=== PATIENT | female | born 1985 | race Caucasian/White ===

== ENCOUNTER 2016-06-13 09:48 | Emergency (ER) | payer BC ==
[2016-06-13 11:28] LABS: ABSOLUTE EOSINOPHILS # (AUTO) 0.1 10^3/uL (0.0-0.6); ABSOLUTE LYMPHOCYTES (AUTO) 2.9 10^3/uL (0.5-4.7); ABSOLUTE MONOCYTES (AUTO) 0.3 10^3/uL (0.1-1.4); ABSOLUTE NEUT (AUTO) 2.8 10^3/uL (1.7-8.2); BASOPHILS % (AUTO) 0.7 % (0-2); EOSINOPHILS % (AUTO) 2.2 % (0-6); HEMATOCRIT 43.8 % (36.0-47.0); HEMOGLOBIN 15.1 g/dL (12.0-15.5); HGB HCT DIFFERENCE 1.5; LYMPHOCYTES % (AUTO) 47.1 % (13-45); MEAN CORPUSCULAR HEMOGLOBIN 30.6 pg (27.0-33.4); MEAN CORPUSCULAR HGB CONC 34.5 g/dL (32.0-36.0); MEAN CORPUSCULAR VOLUME 89 fl (80-97); MONOCYTES % (AUTO) 4.4 % (3-13); RED BLOOD COUNT 4.94 10^6/uL (3.72-5.28); SEGMENTED NEUTROPHILS % (AUTO) 45.6 % (42-78); WHITE BLOOD COUNT 6.2 10^3/uL (4.0-10.5)
[2016-06-13 11:38] LABS: APPEARANCE,URINE CLEAR; BILIRUBIN,URINE NEGATIVE (NEGATIVE); GLUCOSE, URINE NEGATIVE (NEGATIVE); KETONES,URINE NEGATIVE (NEGATIVE); LEUKOCYTE ESTERASE,URINE NEGATIVE (NEGATIVE); NITRITE,URINE NEGATIVE (NEGATIVE); PROTEIN,URINE NEGATIVE (NEGATIVE); URINE SPECIFIC GRAVITY 1.006; UROBILINOGEN,URINE NEGATIVE mg/dL (<2.0)
[2016-06-13 11:43] LABS: ALANINE AMINOTRANSFERASE 107 U/L (9-52); ALBUMIN 3.9 g/dL (3.5-5.0); ALKALINE PHOSPHATASE 53 U/L (38-126); ANION GAP 11 (5-19); ASPARTATE AMINO TRANSFERASE 56 U/L (14-36); BILIRUBIN,TOTAL 0.5 mg/dL (0.2-1.3); BLOOD UREA NITROGEN 9 mg/dL (7-20); CALCIUM 9.5 mg/dL (8.4-10.2); CARBON DIOXIDE 26 mmol/L (22-30); CHLORIDE 103 mmol/L (98-107); CREATININE RESULT 0.86 mg/dL (0.52-1.25); GLUCOSE 139 mg/dL (75-110); LIPASE 86.9 U/L (23-300); POTASSIUM 4.2 mmol/L (3.6-5.0); SODIUM 140.3 mmol/L (137-145); TOTAL PROTEIN 7.4 g/dL (6.3-8.2)
[2016-06-13] MEDS ORDERED: ONDANSETRON 4 MG TAB.RAPDIS PO ONE (13:42)
[2016-06-13] MEDS ORDERED: TRAMADOL HCL 50 MG TABLET PO ONE (13:43)
--- NOTE | 2016-06-13 14:41 | ER Document Report ---
ED GI/ - General Chief Complaint: Abdominal Pain Stated Complaint: ABDOMINAL PAIN Notes: Patient says that she's been experiencing severe left abdominal pains since . And, she is been experiencing rectal bleeding, 7-10 times a day, which is loose, liquid, bloody stools. She describes them as being "nonstop", and "bleeding constantly". She has had this happen a couple of times in the past year and has been seen here and told she had an internal hemorrhoid and was referred to the local surgeons. She says she has appointment to see them on June 29, but called them this morning because of these symptoms and she was advised to come to the emergency room right away. Patient says that she's having nausea and some gagging but not actually vomiting. Her abdominal pain is in the left abdomen more to the left lower quadrant. TRAVEL OUTSIDE OF THE [place] IN LAST 30 DAYS: No - Related Data Allergies/Adverse Reactions: Penicillins Allergy (Intermediate, Verified 06/13/16 10:38) Hives amoxicillin Allergy (Verified 06/13/16 10:38) iodine Allergy (Verified 06/13/16 10:38) latex [Latex] Allergy (Verified 06/13/16 10:38) IVP Dye Allergy (Uncoded 06/13/16 10:38) Past Medical History - Social History Smoking Status: Current Every Day Smoker Chew tobacco use (# tins/day): No Frequency of alcohol use: Social Drug Abuse: None Family History: Arthritis, CAD, CVA, Hyperlipidemia, Hypertension, Malignancy Patient has suicidal ideation: No Patient has homicidal ideation: No Pulmonary Medical History: Reports: Hx Pneumonia Renal/ Medical History: Reports: Hx Ovarian Cysts, Other - LMP second week of April. GI Medical History: Reports: Hx Gastroesophageal Reflux Disease Skin Medical History: Reports Hx Eczema, Reports Hx Psoriasis Psychiatric Medical History: Reports: Hx Depression Past Surgical History: Reports: Hx Section - x2, Hx Tubal Ligation - Immunizations Immunizations up to date: Yes Hx Diphtheria, Pertussis, Tetanus Vaccination: - 2009 Hx Pneumococcal Vaccination: 04/24/09 Review of Systems - Review of Systems Notes: REVIEW OF SYSTEMS: CONSTITUTIONAL : Denies fever. EENT: Denies eye, ear, nose or mouth or throat pain or other symptoms. CARDIOVASCULAR: Denies chest pain. RESPIRATORY: Denies cough, chest congestion, or shortness of breath. GASTROINTESTINAL: See history of present illness. GENITOURINARY: Denies difficulty or painful urinating, urinary frequency, blood in urine. MUSCULOSKELETAL: Denies back or neck pain. Denies joint pain or swelling. SKIN: Denies rash or skin lesions. NEUROLOGICAL: Denies LOC or altered mental status. Denies headache. Denies sensory loss or motor deficits. ALL OTHER SYSTEMS REVIEWED AND NEGATIVE. Physical Exam - Vital signs Vitals: Temp Pulse Resp BP Pulse Ox 98.2 F 78 20 138/91 H 97 06/13/16 10:34 06/13/16 10:34 06/13/16 10:34 06/13/16 10:34 06/13/16 10:34 Interpretation: Normal - Notes Notes: PHYSICAL EXAMINATION: GENERAL: Well-appearing, in no acute distress. Vital signs are all normal. No hypotension and no tachycardia. Weighs 116 kg. HEAD: Atraumatic, normocephalic. NECK: Normal range of motion, supple. LUNGS: Breath sounds clear and equal bilaterally. HEART: Regular rate and rhythm without murmurs. ABDOMEN: Soft, nontender. No guarding or rebound. No tenderness of the left abdomen to my examination, but exam is difficult because of the patient's size. Rectal exam reveals several warts perianally, one fairly large one. I don't see any blood of the anal area or the skin around the anus. Digital exam performed and no abnormalities palpated. The glove returned with no blood visible on it. There was one brown speck of apparent stool present. I obtain a specimen for stool guaiac and it was sent to the lab and came back negative for blood. BACK: No tenderness throughout entire back. EXTREMITIES: Normal range of motion without pain. NEUROLOGICAL: Normal speech, normal gait. Normal sensory, motor, and reflex exams. Awake, alert, and oriented x3. Cranial nerves normal. PSYCH: Normal mood, normal affect. SKIN: Warm, dry, no rashes. Course - Re-evaluation Re-evalutation: 06/13/16 14:36 Patient's entire workup is negative, including negative stool guaiac for blood, negative CT scan of the abdomen and pelvis, and all other lab work. Hemoglobin is 15.1 and white cell count is only in the 6000. Discussed the lab and CT scan with the patient. Advised her that I would provide her with a prescription for nausea vomiting and a prescription for Ultram for pain and she declined both. Patient says she has appointment to see the surgeons regarding this condition on June 29. I encouraged her to keep that appointment. - Vital Signs Vital signs: Temp Pulse Resp BP Pulse Ox 97.8 F 84 16 126/85 H 96 06/13/16 14:47 06/13/16 14:47 06/13/16 14:47 06/13/16 14:47 06/13/16 14:47 - Laboratory Result Diagrams: 06/13/16 11:15 06/13/16 11:15 Laboratory results interpreted by me: 06/13/16 06/13/16 06/13/16 11:15 11:15 11:15 Lymphocytes % 47.1 H Glucose 139 H AST 56 H ALT 107 H Urine Blood SMALL H - Diagnostic Test Radiology reviewed: Image reviewed, Reports reviewed - Uncontrasted CT scan of the patient's abdomen and pelvis shows no abnormalities. Discharge - Discharge Clinical Impression: Rectal bleeding Abdominal pain Qualifiers: Abdominal location: left lower quadrant Qualified Code(s): R10.32 - Left lower quadrant pain Condition: Stable Disposition: HOME, SELF-CARE Additional Instructions: ABDOMINAL PAIN: There are many causes of abdominal pain. Pain can mean a serious problem requiring surgery (such as appendicitis). It can also be an innocent problem that goes away on its own (such as a viral infection). Often, time must pass to determine the cause of pain. The physician does not feel that hospitalization is necessary, at present. Things may change within the next 24 hours. Call the doctor or come back for re- examination if any problems occur, such as: (1) Pain that becomes more severe, steady, or becomes concentrated in one specific area. Also, pain that is more severe with movement or coughing. (2) Vomiting that persists or becomes more frequent. (3) Blood in the vomitus, urine, or bowel movements. Blood in the stool may have a tarry or black appearance. (4) Shaking chills or fever greater than 100 degrees F. (5) The abdomen becomes more distended or swollen. (6) Bowel movements cease. (7) Failure to improve as expected. Rectal Bleeding, Unclear Cause No definite cause has been found for the rectal bleeding you have experienced. Among the possible causes are internal or external hemorrhoids ( internal hemorrhoids can't be felt on the outside), an anal fissure (a crack at the anal ring), infections or inflammatory diseases of the colon, tumors or polyps, or diverticula (diverticula are outpouchings from the colon wall). To establish a cause for your bleeding (or at least make certain there is no serious problem such as a tumor), further evaluation will be necessary. This may include special X-rays, or passage of a scope up into the colon. Be sure to keep your follow-up appointment. Should you develop brisk bleeding, abdominal pain, fever, lightheadedness, or fever, call the doctor or return at once. NORMAL EXAM AND WORKUP: At this time, your examination and workup show no significant abnormality. No significant abnormal physical findings are noted. All laboratory, EKG, and imaging (x-ray, CT scans, ultrasound) studies that were ordered show no significant abnormality. Although your examination and all studies that were ordered showed no significant abnormal finding, there are no examinations and no studies that are 100% accurate. There is always the possibility that some abnormality could exist and not be detected with physical examination or within the limits and capabilities of laboratory and other studies. You should return or follow up as you were instructed on your visit today for further evaluation if your symptoms do not resolve. ANTINAUSEA MEDICATION: You have been given a medication to suppress nausea and vomiting. This type of medication can be given as a shot, pill, or suppository. It will usually last for many hours. Pills and shots usually last six to eight hours, suppositories last about 12 hours. For the typical illness, only one or two doses of the medication may be necessary. Mild lightheadedness may occur. This type of medicine can cause drowsiness. Do not drive or operate dangerous machinery while under its influence. Do not mix with alcohol. See your doctor at once if you have muscle spasms or tightness, or uncontrollable motions (particularly of the neck, mouth, or jaw). Persistent vomiting or severe lightheadedness should also be evaluated by the physician. FOLLOW-UP CARE: If you have been referred to a physician for follow-up care, call the physician s office for an appointment as you were instructed or within the next two days. If you experience worsening or a significant change in your symptoms, notify the physician immediately or return to the Emergency Department at any time for re-evaluation. Keep your appointment to be seen at the surgeon's office on June 29, as scheduled. At any time, if your symptoms worsen, you begin to have heavy hemorrhaging rectally, you have a high fever, or you are vomiting and can't keep down fluids and food, return for us to reevaluate your condition. Forms: Return to Work
[2016-06-13 14:48] VITALS: BP 126/85
== END 2016-06-13 14:48 | disposition home or self-care (01) ==
LOC: ER 09:48
DX: K62.5 Hemorrhage of anus and rectum (principal); R10.32 Left lower quadrant pain; R10.9 Unspecified abdominal pain; F17.210 Nicotine dependence, cigarettes, uncomplicated
CPT/HCPCS: 99284; 36415; 83690; 85025; 82272; 81025; 80053; 81001; 74176; S0119

== ENCOUNTER 2016-09-26 07:55 | Emergency (ER) | payer BC ==
--- NOTE | 2016-09-26 09:19 | ER Document Report ---
ED Medical Screen (RME) - General Chief Complaint: Abdominal Pain Stated Complaint: ADOMINAL PAIN Time Seen by Provider: 09/26/16 09:14 Notes: Patient has had a stabbing left lower quadrant pain since yesterday afternoon. Nausea but no vomiting or diarrhea. No UTI symptoms. No fevers. Patient has had her tubes tied. LMP July. Recent surgery for internal and external hemorrhoids. History of a ruptured ovarian cyst. Additionally, patient says that she is having pain and swelling of her left foot for the last 2 weeks. No history of any injury. No history of gout. TRAVEL OUTSIDE OF THE [place] IN LAST 30 DAYS: No - Related Data Allergies/Adverse Reactions: Penicillins Allergy (Intermediate, Verified 09/26/16 08:08) Hives amoxicillin Allergy (Verified 09/26/16 08:08) iodine Allergy (Verified 09/26/16 08:08) latex [Latex] Allergy (Verified 09/26/16 08:08) IVP Dye Allergy (Uncoded 09/26/16 08:08) Past Medical History - Social History Family history: Reviewed & Not Pertinent Pulmonary Medical History: Reports: Hx Pneumonia Renal/ Medical History: Reports: Hx Ovarian Cysts. Denies: Hx Peritoneal Dialysis GI Medical History: Reports: Hx Gastroesophageal Reflux Disease Skin Medical History: Reports Hx Eczema, Reports Hx Psoriasis Psychiatric Medical History: Reports: Hx Depression Past Surgical History: Reports: Hx Section - x2, Hx Tubal Ligation - Immunizations Immunizations up to date: Yes Hx Diphtheria, Pertussis, Tetanus Vaccination: - 2009 Physical Exam - Vital signs Vitals: Temp Pulse Resp BP Pulse Ox 98.2 F 80 18 138/82 H 99 09/26/16 08:08 09/26/16 08:08 09/26/16 08:08 09/26/16 08:08 09/26/16 08:08 Course - Vital Signs Vital signs: Temp Pulse Resp BP Pulse Ox 98.2 F 80 18 138/82 H 99 09/26/16 08:08 09/26/16 08:08 09/26/16 08:08 09/26/16 08:08 09/26/16 08:08
[2016-09-26 09:49] LABS: ABSOLUTE BASOPHILS # (AUTO) 0.1 10^3/uL (0.0-0.2); ABSOLUTE EOSINOPHILS # (AUTO) 0.2 10^3/uL (0.0-0.6); ABSOLUTE MONOCYTES (AUTO) 0.3 10^3/uL (0.1-1.4); ABSOLUTE NEUT (AUTO) 3.2 10^3/uL (1.7-8.2); BASOPHILS % (AUTO) 0.7 % (0-2); EOSINOPHILS % (AUTO) 2.9 % (0-6); HEMATOCRIT 45.6 % (36.0-47.0); HEMOGLOBIN 15.6 g/dL (12.0-15.5); HGB HCT DIFFERENCE 1.2; LYMPHOCYTES % (AUTO) 44.3 % (13-45); MEAN CORPUSCULAR HEMOGLOBIN 30.5 pg (27.0-33.4); MEAN CORPUSCULAR HGB CONC 34.2 g/dL (32.0-36.0); MEAN CORPUSCULAR VOLUME 89 fl (80-97); MONOCYTES % (AUTO) 5.1 % (3-13); RED BLOOD COUNT 5.11 10^6/uL (3.72-5.28); RED CELL DISTRIBUTION WIDTH 13.2 % (11.5-14.0); WHITE BLOOD COUNT 6.7 10^3/uL (4.0-10.5)
[2016-09-26 09:56] LABS: APPEARANCE,URINE CLEAR; BILIRUBIN,URINE NEGATIVE (NEGATIVE); GLUCOSE, URINE NEGATIVE (NEGATIVE); KETONES,URINE NEGATIVE (NEGATIVE); LEUKOCYTE ESTERASE,URINE NEGATIVE (NEGATIVE); NITRITE,URINE NEGATIVE (NEGATIVE); PROTEIN,URINE NEGATIVE (NEGATIVE); URINE SPECIFIC GRAVITY 1.012; UROBILINOGEN,URINE NEGATIVE mg/dL (<2.0)
[2016-09-26 10:08] LABS: ALANINE AMINOTRANSFERASE 74 U/L (9-52); ALBUMIN 4.1 g/dL (3.5-5.0); ALKALINE PHOSPHATASE 59 U/L (38-126); ANION GAP 11 (5-19); ASPARTATE AMINO TRANSFERASE 37 U/L (14-36); BILIRUBIN,DIRECT 0.3 mg/dL (0.0-0.4); BILIRUBIN,TOTAL 0.5 mg/dL (0.2-1.3); BLOOD UREA NITROGEN 12 mg/dL (7-20); CALCIUM 9.6 mg/dL (8.4-10.2); CARBON DIOXIDE 25 mmol/L (22-30); CHLORIDE 105 mmol/L (98-107); CREATININE RESULT 0.91 mg/dL (0.52-1.25); GLUCOSE 112 mg/dL (75-110); LIPASE 104.9 U/L (23-300); POTASSIUM 4.5 mmol/L (3.6-5.0); SODIUM 140.6 mmol/L (137-145); TOTAL PROTEIN 7.2 g/dL (6.3-8.2); URIC ACID 8.5 mg/dL (2.5-6.2)
--- NOTE | 2016-09-26 11:29 | ER Document Report ---
ED General - General Chief Complaint: Abdominal Pain Stated Complaint: ADOMINAL PAIN Time Seen by Provider: 09/26/16 09:14 TRAVEL OUTSIDE OF THE [place] IN LAST 30 DAYS: No - HPI Patient complains to provider of: Abdominal pain joint pain Notes: Patient coming in for evaluation of abdominal pain left lower quadrant and joint pain. Joint pain has been intermittent over the last few weeks. Patient states that her joints will swell and become red and painful. Patient denies any fevers chills nausea vomiting. Patient denies any trauma. Patient states left lower quadrant abdominal pain no nausea no vomiting no diarrhea. - Related Data Allergies/Adverse Reactions: Penicillins Allergy (Intermediate, Verified 09/26/16 08:08) Hives amoxicillin Allergy (Verified 09/26/16 08:08) iodine Allergy (Verified 09/26/16 08:08) latex [Latex] Allergy (Verified 09/26/16 08:08) IVP Dye Allergy (Uncoded 09/26/16 08:08) Past Medical History - Social History Smoking Status: Current Every Day Smoker Frequency of alcohol use: Rare Drug Abuse: None Family History: Arthritis, CAD, CVA, Hyperlipidemia, Hypertension, Malignancy Patient has suicidal ideation: No Patient has homicidal ideation: No Pulmonary Medical History: Reports: Hx Pneumonia Renal/ Medical History: Reports: Hx Ovarian Cysts. Denies: Hx Peritoneal Dialysis GI Medical History: Reports: Hx Gastroesophageal Reflux Disease Skin Medical History: Reports Hx Eczema, Reports Hx Psoriasis Psychiatric Medical History: Reports: Hx Depression Past Surgical History: Reports: Hx Section - x2, Hx Tubal Ligation - Immunizations Immunizations up to date: Yes Hx Diphtheria, Pertussis, Tetanus Vaccination: - 2009 Hx Pneumococcal Vaccination: 04/24/09 Review of Systems - Review of Systems Constitutional: No symptoms reported EENT: No symptoms reported Cardiovascular: No symptoms reported Respiratory: No symptoms reported Gastrointestinal: Abdominal pain Genitourinary: No symptoms reported Female Genitourinary: No symptoms reported Musculoskeletal: Other - Joint pain Skin: No symptoms reported Hematologic/Lymphatic: No symptoms reported Neurological/Psychological: No symptoms reported Physical Exam - Vital signs Vitals: Temp Pulse Resp BP Pulse Ox 98.2 F 80 18 138/82 H 99 09/26/16 08:08 09/26/16 08:08 09/26/16 08:08 09/26/16 08:08 09/26/16 08:08 Interpretation: Normal - General General appearance: Appears well, Alert - HEENT Head: Normocephalic, Atraumatic Eyes: Normal Pupils: PERRL - Respiratory Respiratory status: No respiratory distress Chest status: Nontender Breath sounds: Normal Chest palpation: Normal - Cardiovascular Rhythm: Regular Heart sounds: Normal auscultation Murmur: No - Abdominal Inspection: Normal Distension: No distension Bowel sounds: Normal Tenderness: Nontender. No: Tender, McBurney's point, Clayton's sign, Guarding, Rebound Organomegaly: No organomegaly - Back Back: Normal, Nontender - Extremities General upper extremity: Normal inspection, Nontender, Normal color, Normal ROM , Normal temperature General lower extremity: Normal inspection, Nontender, Normal color, Normal ROM , Normal temperature, Normal weight bearing. No: Marlen's sign - Neurological Neuro grossly intact: Yes Cognition: Normal Orientation: AAOx4 [place] Coma Scale Eye Opening: Spontaneous [place] Coma Scale Verbal: Oriented [place] Coma Scale Motor: Obeys Commands Car[place] Coma Scale Total: 15 Speech: Normal Motor strength normal: LUE, RUE, LLE, RLE Sensory: Normal - Psychological Associated symptoms: Normal affect, Normal mood - Skin Skin Temperature: Warm Skin Moisture: Dry Skin Color: Normal Course - Re-evaluation Re-evalutation: 09/26/16 15:11 Patient coming in for evaluation of lower quadrant abdominal pain and joint pain. Patient does have elevation or her uric acid possibly beginning of gout. Patient was educated about gout. At this time patient does not have any joints that look to be undergoing a gout flare. Patient does have left lower quadrant abdominal pain however abdomen is very benign upon evaluation patient is concerned about an ovarian cyst. Plan patient job very resistant mixes do not think this is emergent this time she does not need an ultrasound. Patient lab work shows no signs of acute pathology slight elevation in LFTs is chronic for the patient is on the . Patient will be discharged home. - Vital Signs Vital signs: Temp Pulse Resp BP Pulse Ox 98.7 F 96 20 144/95 H 96 09/26/16 11:30 09/26/16 11:30 09/26/16 11:30 09/26/16 11:30 09/26/16 11:30 - Laboratory Result Diagrams: 09/26/16 09:30 09/26/16 09:30 Laboratory results interpreted by me: 09/26/16 09/26/16 09:30 09:30 Hgb 15.6 H Glucose 112 H Uric Acid 8.5 H AST 37 H ALT 74 H Discharge - Discharge Clinical Impression: Left lower quadrant abdominal pain, Amenorrhea Extremity pain Qualifiers: Extremity pain location: unspecified extremity Qualified Code(s): M79.609 - Pain in unspecified limb Condition: Good Disposition: HOME, SELF-CARE Instructions: Abdominal Pain ([facility]), Gout Diet ([facility]), Gout ([facility]) Additional Instructions: Your laboratory studies today shows elevation in uric acid which could be concerning for gout. I would highly recommend she follow-up with your primary care physician or one of the physicians provided for further evaluation. We treat gout with diet control and anti-inflammatory medications. Please follow with primary care physician for further evaluation of abdominal pain. He may also follow-up with your [employer] for further evaluation of your amenorrhea Prescriptions: Ibuprofen [Motrin 600 Mg Tablet] 600 mg PO TID #60 tablet Forms: Return to Work
[2016-09-26 12:16] VITALS: BP 144/95
== END 2016-09-26 12:18 | disposition home or self-care (01) ==
LOC: ER 07:55
DX: R10.32 Left lower quadrant pain (principal); M25.50 Pain in unspecified joint; N91.2 Amenorrhea, unspecified; R79.89 Other specified abnormal findings of blood chemistry; F17.200 Nicotine dependence, unspecified, uncomplicated; Z87.42 Personal history of other diseases of the female genital tract; Z87.19 Personal history of other diseases of the digestive system; Z98.51 Tubal ligation status; Z88.0 Allergy status to penicillin; Z91.040 Latex allergy status; Z91.041 Radiographic dye allergy status
CPT/HCPCS: 36415; 80053; 81001; 83690; 84550; 84703; 85025; 86430; 99284

== ENCOUNTER 2017-02-03 11:18 | Emergency (ER) | payer BC ==
[2017-02-03 13:08] LABS: APPEARANCE,URINE CLEAR; BILIRUBIN,URINE NEGATIVE (NEGATIVE); GLUCOSE, URINE NEGATIVE (NEGATIVE); KETONES,URINE NEGATIVE (NEGATIVE); LEUKOCYTE ESTERASE,URINE NEGATIVE (NEGATIVE); NITRITE,URINE NEGATIVE (NEGATIVE); PROTEIN,URINE NEGATIVE (NEGATIVE); URINE SPECIFIC GRAVITY 1.004; UROBILINOGEN,URINE NEGATIVE mg/dL (<2.0)
--- NOTE | 2017-02-03 13:46 | ER Document Report ---
ED Medical Screen (RME) - General Chief Complaint: Swelling Stated Complaint: stomach pain, left-sided chest pain, edema. Time Seen by Provider: 02/03/17 13:27 Mode of Arrival: Ambulatory Information source: Patient Notes: 31-year-old female reports she made changes in her diet and activity level about 1-2 months ago. One month ago she began to have swelling, initially on the left side. She now has swelling in both legs and she feels like she has swelling in both hands. She also complains of swelling underneath her jaw, in her neck. This is more notable when she first wakes up in the morning and then resolves. She also complains of left-sided chest pain with radiation into her left arm. She is beginning to have some discomfort in her left upper abdomen. TRAVEL OUTSIDE OF THE [place] IN LAST 30 DAYS: No - HPI Onset: Other - 1 month Onset/Duration: Gradual - Related Data Allergies/Adverse Reactions: Penicillins Allergy (Intermediate, Verified 02/03/17 11:48) Hives amoxicillin Allergy (Verified 02/03/17 11:48) iodine Allergy (Verified 02/03/17 11:48) latex [Latex] Allergy (Verified 02/03/17 11:48) IVP Dye Allergy (Uncoded 02/03/17 11:48) Past Medical History - Social History Chew tobacco use (# tins/day): No Frequency of alcohol use: None Drug Abuse: None Family history: Reviewed & Not Pertinent Pulmonary Medical History: Reports: Hx Pneumonia Renal/ Medical History: Reports: Hx Ovarian Cysts. Denies: Hx Peritoneal Dialysis GI Medical History: Reports: Hx Gastroesophageal Reflux Disease Skin Medical History: Reports Hx Eczema, Reports Hx Psoriasis Psychiatric Medical History: Reports: Hx Depression Past Surgical History: Reports: Hx Section - x2, Hx Tubal Ligation - Immunizations Immunizations up to date: Yes Hx Diphtheria, Pertussis, Tetanus Vaccination: Yes - 2009 History of Influenza Vaccine for 01/2017 - 06/2017 Season: No Review of Systems - Review of Systems Constitutional: Weight gain - Weight gain despite increased activity and decreased intake. EENT: No symptoms reported Cardiovascular: Chest pain Respiratory: See HPI Gastrointestinal: Abdominal pain Genitourinary: No symptoms reported Female Genitourinary: No symptoms reported Musculoskeletal: Leg swelling, Ankle swelling Skin: No symptoms reported Hematologic/Lymphatic: No symptoms reported Neurological/Psychological: No symptoms reported Physical Exam - Vital signs Vitals: Temp Pulse Resp BP Pulse Ox 99.0 F 73 20 144/94 H 99 02/03/17 11:50 02/03/17 11:50 02/03/17 11:50 02/03/17 11:50 02/03/17 11:50 - Notes Notes: PHYSICAL EXAMINATION: GENERAL: Well-appearing, no acute distress. Moderate body habitus. Patient alert and communicative. HEAD: Atraumatic, normocephalic. ENT: Nares patent, oropharynx clear without exudates. Moist mucous membranes. NECK: Normal range of motion, supple without lymphadenopathy LUNGS: Breath sounds clear to auscultation bilaterally and equal. No wheezes rales or rhonchi. HEART: Regular rate and rhythm without murmurs ABDOMEN: Soft, mild tenderness in the left upper quadrant., nondistended abdomen. No guarding, no rebound. No masses appreciated. Musculoskeletal: Normal range of motion, mild 1-2+ pitting edema.. No cyanosis. NEUROLOGICAL: Cranial nerves grossly intact. Normal speech, normal gait. Normal sensory, motor exams PSYCH: Normal mood, normal affect. SKIN: Warm, Dry, no rashes or lesions noted. Course - Re-evaluation Re-evalutation: 02/03/17 13:42 Unclear cause of swelling, in both legs and in her neck. Question of venous return. The patient does not have any identifiable risk factors for blood clots , but we will check a d-dimer. We will check kidney function as well as electrolytes and protein level due to the edema she has been having. I have greeted this patient and performed a rapid initial assessment. A comprehensive evaluation will be performed by another physician within the emergency department, including review of any tests I may have ordered. 02/03/17 15:32 Patient's blood tests overall look good. Chest x-ray is unremarkable. Her cardiac silhouette appears to me to be generous, but radiology has interpreted this as normal with no sign of failure. At this time, the patient appears overall well. I have asked her to follow-up with her primary physician. No acute interventions at this time. - Vital Signs Vital signs: Temp Pulse Resp BP Pulse Ox 99.0 F 73 20 144/94 H 99 02/03/17 11:50 02/03/17 11:50 02/03/17 11:50 02/03/17 11:50 02/03/17 11:50 - Laboratory Result Diagrams: 02/03/17 13:40 02/03/17 13:40 Laboratory results interpreted by me: 02/03/17 02/03/17 13:40 13:40 Hgb 15.7 H Lymphocytes % 45.3 H AST 53 H ALT 91 H Doctor's Discharge - Discharge Condition: Good Disposition: HOME, SELF-CARE Instructions: Dependent Edema ([facility]) Additional Instructions: Your blood tests, including your blood count, electrolytes, kidney function, and a test checking for possible blood clots, all looked reasonable. Your chest x-ray looked reasonable with no sign of cardiac failure. Take hydrochlorothiazide to help with some mild diuresis. Follow-up with your primary physician. Return to the emergency department if you have trouble breathing, increased swelling, or other urgent concerns. Prescriptions: Hydrochlorothiazide 12.5 mg PO QAM #15 tablet
[2017-02-03 14:06] LABS: ABSOLUTE EOSINOPHILS # (AUTO) 0.2 10^3/uL (0.0-0.6); ABSOLUTE LYMPHOCYTES (AUTO) 3.4 10^3/uL (0.5-4.7); ABSOLUTE MONOCYTES (AUTO) 0.5 10^3/uL (0.1-1.4); ABSOLUTE NEUT (AUTO) 3.4 10^3/uL (1.7-8.2); BASOPHILS % (AUTO) 0.6 % (0-2); EOSINOPHILS % (AUTO) 2.3 % (0-6); HEMATOCRIT 44.8 % (36.0-47.0); HEMOGLOBIN 15.7 g/dL (12.0-15.5); HGB HCT DIFFERENCE 2.3; LYMPHOCYTES % (AUTO) 45.3 % (13-45); MEAN CORPUSCULAR HEMOGLOBIN 31.1 pg (27.0-33.4); MEAN CORPUSCULAR VOLUME 89 fl (80-97); RED BLOOD COUNT 5.05 10^6/uL (3.72-5.28); RED CELL DISTRIBUTION WIDTH 13.4 % (11.5-14.0); SEGMENTED NEUTROPHILS % (AUTO) 44.8 % (42-78); WHITE BLOOD COUNT 7.6 10^3/uL (4.0-10.5)
[2017-02-03 14:21] LABS: ALANINE AMINOTRANSFERASE 91 U/L (9-52); ALBUMIN 4.3 g/dL (3.5-5.0); ALKALINE PHOSPHATASE 54 U/L (38-126); ANION GAP 12 (5-19); ASPARTATE AMINO TRANSFERASE 53 U/L (14-36); BILIRUBIN,DIRECT 0.3 mg/dL (0.0-0.4); BILIRUBIN,TOTAL 0.3 mg/dL (0.2-1.3); BLOOD UREA NITROGEN 14 mg/dL (7-20); CALCIUM 9.9 mg/dL (8.4-10.2); CARBON DIOXIDE 26 mmol/L (22-30); CHLORIDE 103 mmol/L (98-107); CREATINE KINASE 97 U/L (30-135); CREATININE RESULT 0.95 mg/dL (0.52-1.25); GLUCOSE 81 mg/dL (75-110); LIPASE 106.9 U/L (23-300); POTASSIUM 4.8 mmol/L (3.6-5.0); SODIUM 140.6 mmol/L (137-145); TOTAL PROTEIN 7.3 g/dL (6.3-8.2)
--- NOTE | 2017-02-03 15:09 | RADIOLOGY REPORT (SQ) ---
EXAM DESCRIPTION: CHEST PA/LAT COMPLETED DATE/TIME: 02/03/2017 2:30 pm REASON FOR STUDY: left sided chest pain COMPARISON: Chest films 10/11/2012, 07/28/2015 EXAM PARAMETERS: NUMBER OF VIEWS: two views TECHNIQUE: Digital Frontal and Lateral radiographic views of the chest acquired. RADIATION DOSE: NA LIMITATIONS: none FINDINGS: LUNGS AND PLEURA: No opacities, masses or pneumothorax. No pleural effusion. MEDIASTINUM AND HILAR STRUCTURES: No masses or contour abnormalities. HEART AND VASCULAR STRUCTURES: Heart normal size. No evidence for failure. BONES: No acute findings. HARDWARE: None in the chest. OTHER: No other significant finding. IMPRESSION: NO SIGNIFICANT RADIOGRAPHIC FINDING IN THE CHEST. TECHNICAL DOCUMENTATION: JOB ID: [id number] [employer]- All Rights Reserved
[2017-02-03 16:27] LABS: THYROID STIMULATING HORMONE 6.83 uIU/mL (0.47-4.68)
--- NOTE | 2017-02-03 16:33 | ER Document Report ---
ED General - General Chief Complaint: Swelling Stated Complaint: stomach pain, left-sided chest pain, edema. Time Seen by Provider: 02/03/17 13:27 Mode of Arrival: Ambulatory Information source: Patient TRAVEL OUTSIDE OF THE [place] IN LAST 30 DAYS: No - HPI Patient complains to provider of: Abdominal distention, weight gain, leg swelling Onset: Other - 1 month Onset/Duration: Gradual, Persistent Quality of pain: Achy Associated symptoms: Body/muscle aches, Shortness of breath Notes: Patient is a 31-year-old female presenting to the emergency room today complaining of one-month history of abdominal bloating with weight gain, swelling in her neck area and on her left arm in her left leg, she also has some pain in the left upper abdomen, she reports shortness of breath at times with the sensation that she is gasping for air, she states that over the past few months she started working out, cut soda out of her diet, has been maintaining portion control and taking vitamins but continues to gain weight instead of losing - Related Data Allergies/Adverse Reactions: Penicillins Allergy (Intermediate, Verified 02/03/17 11:48) Hives amoxicillin Allergy (Verified 02/03/17 11:48) iodine Allergy (Verified 02/03/17 11:48) latex [Latex] Allergy (Verified 02/03/17 11:48) IVP Dye Allergy (Uncoded 02/03/17 11:48) Past Medical History - General Information source: Patient - Social History Smoking Status: Current Every Day Smoker Chew tobacco use (# tins/day): No Frequency of alcohol use: None Drug Abuse: None Family History: Arthritis, CAD, CVA, Hyperlipidemia, Hypertension, Malignancy Pulmonary Medical History: Reports: Hx Pneumonia Renal/ Medical History: Reports: Hx Ovarian Cysts. Denies: Hx Peritoneal Dialysis GI Medical History: Reports: Hx Gastroesophageal Reflux Disease Skin Medical History: Reports Hx Eczema, Reports Hx Psoriasis Psychiatric Medical History: Reports: Hx Depression Past Surgical History: Reports: Hx Section - x2, Hx Tubal Ligation - Immunizations Immunizations up to date: Yes Hx Diphtheria, Pertussis, Tetanus Vaccination: Yes - 2009 Hx Pneumococcal Vaccination: 04/24/09 Review of Systems - Review of Systems Constitutional: Weight gain EENT: No symptoms reported Cardiovascular: No symptoms reported Respiratory: See HPI Gastrointestinal: See HPI Genitourinary: No symptoms reported Female Genitourinary: No symptoms reported Musculoskeletal: No symptoms reported Skin: No symptoms reported Hematologic/Lymphatic: No symptoms reported Neurological/Psychological: No symptoms reported -: Yes All other systems reviewed and negative Physical Exam - Vital signs Vitals: Temp Pulse Resp BP Pulse Ox 99.0 F 73 20 144/94 H 99 02/03/17 11:50 02/03/17 11:50 02/03/17 11:50 02/03/17 11:50 02/03/17 11:50 Interpretation: Normal - General General appearance: Appears well, Alert - HEENT Head: Normocephalic, Atraumatic Eyes: Normal Pupils: PERRL - Respiratory Respiratory status: No respiratory distress Chest status: Nontender Breath sounds: Normal Chest palpation: Normal - Cardiovascular Rhythm: Regular Heart sounds: Normal auscultation Murmur: No - Abdominal Inspection: Obese Distension: Distended - Distended but soft Bowel sounds: Normal Tenderness: Tender - Left upper quadrant Organomegaly: No organomegaly - Back Back: Normal, Nontender - Extremities General upper extremity: Normal inspection, Nontender, Normal color, Normal ROM , Normal temperature General lower extremity: Normal inspection, Nontender, Normal color, Normal ROM , Normal temperature, Normal weight bearing. No: Marlen's sign - Neurological Neuro grossly intact: Yes Cognition: Normal Orientation: AAOx4 [place] Coma Scale Eye Opening: Spontaneous [place] Coma Scale Verbal: Oriented [place] Coma Scale Motor: Obeys Commands [place] Coma Scale Total: 15 Speech: Normal Motor strength normal: LUE, RUE, LLE, RLE Sensory: Normal - Psychological Associated symptoms: Normal affect, Normal mood - Skin Skin Temperature: Warm Skin Moisture: Dry Skin Color: Normal Course - Re-evaluation Re-evalutation: 02/03/17 16:37 Lab and imaging findings were discussed with patient at bedside which are relatively unremarkable, she is noted to have a slightly elevated TSH with no changes to T3 or T4, and mild elevation of liver enzymes which she is aware of due to fatty liver in the past, patient will be discharged with a prescription for hydrochlorothiazide 12.5 mg for assistance with peripheral edema, advised to follow-up with a primary care provider and a custom shoe designer and maker in 2-3 days or return if symptoms worsen, patient acknowledges understanding and agreement with this plan - Vital Signs Vital signs: Temp Pulse Resp BP Pulse Ox 98.6 F 71 15 174/65 H 97 10/13/17 16:00 02/03/17 16:00 02/03/17 16:00 02/03/17 16:00 02/03/17 16:00 - Laboratory Result Diagrams: 02/03/17 13:40 02/03/17 13:40 Laboratory results interpreted by me: 02/03/17 02/03/17 02/03/17 13:40 13:40 13:40 Hgb 15.7 H Lymphocytes % 45.3 H AST 53 H ALT 91 H TSH 6.83 H - Diagnostic Test Radiology reviewed: Image reviewed, Reports reviewed - EKG Interpretation by Me EKG shows normal: Sinus rhythm Rate: Normal Rhythm: NSR Discharge - Discharge Clinical Impression: Peripheral edema, Abdominal distention Condition: Good Disposition: HOME, SELF-CARE Instructions: Abdominal Pain ([facility]), Dependent Edema ([facility]), Family Physicians / Practices Additional Instructions: Your blood tests, including your blood count, electrolytes, kidney function, and a test checking for possible blood clots, all looked reasonable. Your chest x-ray looked reasonable with no sign of cardiac failure. Take hydrochlorothiazide to help with some mild diuresis. Follow-up with your primary physician. Return to the emergency department if you have trouble breathing, increased swelling, or other urgent concerns. Prescriptions: Hydrochlorothiazide 12.5 mg PO QAM #15 tablet Forms: Return to Work Referrals: TRACY LAURA MD [ACTIVE STAFF] - Follow up as needed
[2017-02-03 17:15] VITALS: BP 174/65
--- NOTE | 2017-02-03 18:26 | EKG REPORT ---
SEVERITY:- BORDERLINE ECG - SINUS RHYTHM BORDERLINE T ABNORMALITIES, ANTERIOR LEADS : Confirmed by: Nathanael Hook MD 03-Feb-2017 18:26:21
== END 2017-02-03 17:15 | disposition home or self-care (01) ==
LOC: ER 11:18
DX: R60.9 Edema, unspecified (principal); R14.0 Abdominal distension (gaseous); E66.9 Obesity, unspecified; F17.200 Nicotine dependence, unspecified, uncomplicated; Z98.51 Tubal ligation status; Z88.0 Allergy status to penicillin; Z91.040 Latex allergy status; Z91.041 Radiographic dye allergy status
CPT/HCPCS: 36415; 71020; 80053; 81001; 81025; 82550; 83690; 84439; 84443; 84481; 84484; 85025; 85379; 93005; 93010; 99284

== ENCOUNTER 2017-09-20 11:29 | Emergency (ER) | payer BC ==
[2017-09-20 11:43] VITALS: BP 129/84
[2017-09-20] MEDS ORDERED: ASPIRIN 81 MG TABLET, CHEWABLE PO ONE (11:57)
[2017-09-20] MEDS ORDERED: ALPRAZOLAM 0.5 MG TABLET PO ONE (11:58)
--- NOTE | 2017-09-20 11:59 | ER Document Report ---
ED Medical Screen (RME) - General Chief Complaint: Dizziness Stated Complaint: DIZZINESS Time Seen by Provider: 09/20/17 11:57 Notes: 32 years old female presents today with on and off chest tightness and chest pain with the left arm pain and discomfort associated with the chest pain since this morning. Currently have no pain. Denies any nausea vomiting palpitation or diaphoresis. She has a history of depression possibly anxiety I have greeted and performed a rapid initial assessment of this patient. A comprehensive ED assessment and evaluation of the patient, analysis of test results and completion of the medical decision making process will be conducted by additional ED providers. PHYSICAL EXAMINATION: GENERAL: Well-appearing, well-nourished and in no acute distress. Morbid obesity HEAD: Atraumatic, normocephalic. EYES: Pupils equal round extraocular movements intact, conjunctiva are normal. ENT: Nares patent NECK: Normal range of motion LUNGS: No respiratory distress Musculoskeletal: Normal range of motion NEUROLOGICAL: Normal speech, normal gait. PSYCH: Normal mood, normal affect. SKIN: Warm, Dry, normal turgor, no rashes or lesions noted. TRAVEL OUTSIDE OF THE [place] IN LAST 30 DAYS: No - Related Data Allergies/Adverse Reactions: Penicillins Allergy (Intermediate, Verified 09/20/17 11:36) Hives amoxicillin Allergy (Verified 09/20/17 11:36) iodine Allergy (Verified 09/20/17 11:36) latex [Latex] Allergy (Verified 09/20/17 11:36) IVP Dye Allergy (Uncoded 09/20/17 11:36) Past Medical History - Social History Family history: Reviewed & Not Pertinent Pulmonary Medical History: Reports: Hx Pneumonia Renal/ Medical History: Reports: Hx Ovarian Cysts. Denies: Hx Peritoneal Dialysis GI Medical History: Reports: Hx Gastroesophageal Reflux Disease Skin Medical History: Reports Hx Eczema, Reports Hx Psoriasis Psychiatric Medical History: Reports: Hx Depression Past Surgical History: Reports: Hx Section - x2, Hx Tubal Ligation - Immunizations Immunizations up to date: Yes Hx Diphtheria, Pertussis, Tetanus Vaccination: Yes - 2009 History of Influenza Vaccine for 01/2017 - 06/2017 Season: No Physical Exam - Vital signs Vitals: Temp Pulse Resp BP Pulse Ox 98.7 F 84 16 129/84 H 99 09/20/17 11:42 09/20/17 11:42 09/20/17 11:42 09/20/17 11:42 09/20/17 11:42 Course - Vital Signs Vital signs: Temp Pulse Resp BP Pulse Ox 98.7 F 84 16 129/84 H 99 09/20/17 11:42 09/20/17 11:42 09/20/17 11:42 09/20/17 11:42 09/20/17 11:42
[2017-09-20 12:55] LABS: ABSOLUTE EOSINOPHILS # (AUTO) 0.2 10^3/uL (0.0-0.6); ABSOLUTE LYMPHOCYTES (AUTO) 2.6 10^3/uL (0.5-4.7); ABSOLUTE MONOCYTES (AUTO) 0.4 10^3/uL (0.1-1.4); ABSOLUTE NEUT (AUTO) 3.2 10^3/uL (1.7-8.2); BASOPHILS % (AUTO) 0.5 % (0-2); HEMATOCRIT 43.7 % (36.0-47.0); LYMPHOCYTES % (AUTO) 40.5 % (13-45); MEAN CORPUSCULAR HEMOGLOBIN 30.7 pg (27.0-33.4); MEAN CORPUSCULAR HGB CONC 34.2 g/dL (32.0-36.0); MEAN CORPUSCULAR VOLUME 90 fl (80-97); MONOCYTES % (AUTO) 6.6 % (3-13); PLATELET COUNT 242 10^3/uL (150-450); RED BLOOD COUNT 4.88 10^6/uL (3.72-5.28); RED CELL DISTRIBUTION WIDTH 13.2 % (11.5-14.0); SEGMENTED NEUTROPHILS % (AUTO) 49.4 % (42-78); TOTAL CELLS COUNTED % (AUTO) 100 %; WHITE BLOOD COUNT 6.4 10^3/uL (4.0-10.5)
[2017-09-20 13:16] LABS: ALANINE AMINOTRANSFERASE 111 U/L (9-52); ALBUMIN 4.1 g/dL (3.5-5.0); ALKALINE PHOSPHATASE 48 U/L (38-126); ANION GAP 10 (5-19); ASPARTATE AMINO TRANSFERASE 55 U/L (14-36); BILIRUBIN,DIRECT 0.3 mg/dL (0.0-0.4); BILIRUBIN,TOTAL 0.3 mg/dL (0.2-1.3); BLOOD UREA NITROGEN 10 mg/dL (7-20); CALCIUM 9.6 mg/dL (8.4-10.2); CARBON DIOXIDE 27 mmol/L (22-30); CHLORIDE 107 mmol/L (98-107); CREATINE KINASE 202 U/L (30-135); GLUCOSE 90 mg/dL (75-110); POTASSIUM 4.4 mmol/L (3.6-5.0); SODIUM 144.1 mmol/L (137-145)
--- NOTE | 2017-09-20 13:16 | RADIOLOGY REPORT (SQ) ---
EXAM DESCRIPTION: CHEST SINGLE VIEW COMPLETED DATE/TIME: 09/20/2017 1:04 pm REASON FOR STUDY: Chest pain COMPARISON: Chest films 02/03/2017, 07/28/2015 EXAM PARAMETERS: NUMBER OF VIEWS: One view. TECHNIQUE: Single frontal radiographic view of the chest acquired. RADIATION DOSE: NA LIMITATIONS: None. FINDINGS: LUNGS AND PLEURA: No opacities, masses or pneumothorax. No pleural effusion. MEDIASTINUM AND HILAR STRUCTURES: No masses. Contour normal. HEART AND VASCULAR STRUCTURES: Heart normal in size. Normal vasculature. BONES: No acute findings. HARDWARE: None in the chest. OTHER: No other significant finding. IMPRESSION: NO ACUTE RADIOGRAPHIC FINDING IN THE CHEST. TECHNICAL DOCUMENTATION: JOB ID: [id number] [employer]- All Rights Reserved Reading location - IP/workstation name: [email or web address]
[2017-09-20 13:26] LABS: CREATINE KINASE MB 0.81 ng/mL (<4.55); TROPONIN I < 0.012 ng/mL
--- NOTE | 2017-09-20 14:52 | ER Document Report ---
ED General - General Chief Complaint: Dizziness Stated Complaint: DIZZINESS Time Seen by Provider: 09/20/17 11:57 Mode of Arrival: Ambulatory Information source: Patient Notes: 32-year-old lady with past medical history of GERD, anxiety as well as depression who presented today for evaluation of chest pain. According to patient her symptoms started approximately around 930 or 10 AM. Patient had chest pressure localized to the middle the chest, no radiation, severity of symptoms 6 out of 10, associated with mild shortness of breath without any diaphoresis or vomiting. Symptoms were nonexertional. Patient denies any prior history of heart disease. No strong family history of heart disease as well. TRAVEL OUTSIDE OF THE [place] IN LAST 30 DAYS: No - Related Data Allergies/Adverse Reactions: Penicillins Allergy (Intermediate, Verified 09/20/17 11:36) Hives amoxicillin Allergy (Verified 09/20/17 11:36) iodine Allergy (Verified 09/20/17 11:36) latex [Latex] Allergy (Verified 09/20/17 11:36) IVP Dye Allergy (Uncoded 09/20/17 11:36) Past Medical History - General Information source: Patient - Social History Smoking Status: Current Every Day Smoker Chew tobacco use (# tins/day): No Frequency of alcohol use: None Drug Abuse: None Family History: Arthritis, CAD, CVA, Hyperlipidemia, Hypertension, Malignancy Patient has suicidal ideation: No Patient has homicidal ideation: No Pulmonary Medical History: Reports: Hx Pneumonia Renal/ Medical History: Reports: Hx Ovarian Cysts. Denies: Hx Peritoneal Dialysis GI Medical History: Reports: Hx Gastroesophageal Reflux Disease Skin Medical History: Reports Hx Eczema, Reports Hx Psoriasis Psychiatric Medical History: Reports: Hx Depression Past Surgical History: Reports: Hx Section - x2, Hx Tubal Ligation - Immunizations Immunizations up to date: Yes Hx Diphtheria, Pertussis, Tetanus Vaccination: Yes - 2009 Hx Pneumococcal Vaccination: 04/24/09 Review of Systems - Review of Systems Notes: REVIEW OF SYSTEMS: CONSTITUTIONAL: -fevers, -chills EENT: -eye pain, -difficulty swallowing, -nasal congestion CARDIOVASCULAR: + Chest pain, -syncope. RESPIRATORY: -cough, + SOB GASTROINTESTINAL: -abdominal pain, -nausea, -vomiting, -diarrhea GENITOURINARY: -dysuria, -hematuria MUSCULOSKELETAL: -back pain, -neck pain SKIN: -rash or skin lesions. HEMATOLOGIC: -easy bruising or bleeding. LYMPHATIC: -swollen, enlarged glands. NEUROLOGICAL: -altered mental status or loss of consciousness, -headache, - neurologic symptoms PSYCHIATRIC: -anxiety, -depression. ALL OTHER SYSTEMS REVIEWED AND NEGATIVE. Physical Exam - Vital signs Vitals: Temp Pulse Resp BP Pulse Ox 98.7 F 84 16 129/84 H 99 09/20/17 11:42 09/20/17 11:42 09/20/17 11:42 09/20/17 11:42 09/20/17 11:42 - Notes Notes: Reviewed vital signs and nursing note as charted by RN. CONSTITUTIONAL: Alert and oriented and responds appropriately to questions, overweight HEAD: Normocephalic; atraumatic EYES: PERRL; Conjunctivae clear, sclerae non-icteric ENT: normal nose; no rhinorrhea; moist mucous membranes; pharynx without lesions noted NECK: Supple without meningismus; non-tender; no cervical lymphadenopathy, no masses CARD: Regular rate and rhythm; no murmurs, no clicks, no rubs, no gallops; symmetric distal pulses RESP: Normal chest excursion without splinting or tachypnea; breath sounds clear and equal bilaterally ABD/GI: Normal bowel sounds; non-distended; soft, BACK: The back appears normal and is non-tender to palpation EXT: Normal ROM in all joints; non-tender to palpation; no cyanosis, no effusions, no edema SKIN: Normal color for age and race; warm; dry; good turgor; capillary refill < 2 seconds; no acute lesions noted NEURO: .Cranial nerves 3-12 intact. Motor strength 5/5 bilaterally. Sensation intact to touch bilaterally. No pronator drift. Finger to nose intact bilaterally PSYCH: The patient's mood and manner are appropriate. Grooming and personal hygiene are appropriate. Course - Re-evaluation Re-evalutation: 32-year-old here for evaluation of chest pain as well as shortness of breath Symptoms were nonexertional, patient is chest pain-free now Differential diagnosis includes ACS, pneumonia, pleural effusion, muscular skeletal pain, anxiety, pericarditis We will obtain basic lab work including CBC, BMP, chest x-ray, EKG, troponin Continuous cardiac monitoring as well as pulse oximetry Reassess patient 09/20/17 15:08 Patient has normal cardiac workup, undetectable troponin, EKG with no ischemic changes Chest x-ray without any acute cardiopulmonary process, CBC without any abnormalities Discussed results of imaging with patient as well as workup including cardiac workup Agree with disposition home today and close follow-up with her primary care physician We will give patient a trial of Zantac Heart score is 1, therefore appropriate for outpatient workup and follow-up with primary care physician - Vital Signs Vital signs: Temp Pulse Resp BP Pulse Ox 98.7 F 84 16 129/84 H 97 09/20/17 11:42 09/20/17 11:42 09/20/17 11:42 09/20/17 11:42 09/20/17 11:57 - Laboratory Result Diagrams: 09/20/17 12:25 09/20/17 12:25 Laboratory results interpreted by me: 09/20/17 12:25 AST 55 H ALT 111 H Creatine Kinase 202 H - Diagnostic Test Radiology reviewed: Image reviewed - No acute cardiopulmonary process - EKG Interpretation by Me Additional EKG results interpreted by me: 09/20/17 15:10 EKG interpretation 12 PM Normal sinus rhythm, heart rate 68 OH interval 176, QRS narrow, QTC 392 T-wave flattening in septal leads, appear to be old compared to the prior EKG No ST elevations or depressions in any of the leads Discharge - Discharge Clinical Impression: Chest pain Qualifiers: Chest pain type: unspecified Qualified Code(s): R07.9 - Chest pain, unspecified Condition: Stable Disposition: HOME, SELF-CARE Instructions: Chest Pain of Unclear Cause ([facility]) Additional Instructions: Please come back if you have worsening chest pain, shortness of breath or palpitations Please take Zantac for your symptoms Make sure you drink plenty of fluids today Prescriptions: Ranitidine HCl [Zantac 75 mg Tablet] 75 mg PO DAILY 30 Days #30 tablet Forms: Return to Work Referrals: MANPREET DOAN MD [Primary Care Provider] - Follow up as needed
--- NOTE | 2017-09-20 23:13 | EKG REPORT ---
SEVERITY:- BORDERLINE ECG - SINUS RHYTHM BORDERLINE T ABNORMALITIES, ANTERIOR LEADS : Confirmed by: Elías Hsu 20-Sep-2017 23:13:14
== END 2017-09-20 15:33 | disposition home or self-care (01) ==
LOC: ER 11:29
DX: R07.9 Chest pain, unspecified (principal); R42 Dizziness and giddiness; R06.02 Shortness of breath; F17.200 Nicotine dependence, unspecified, uncomplicated; Z88.0 Allergy status to penicillin; Z91.040 Latex allergy status; Z91.041 Radiographic dye allergy status; Z98.51 Tubal ligation status
CPT/HCPCS: 36415; 71045; 80053; 82550; 82553; 84484; 85025; 93005; 93010; 99284

== ENCOUNTER 2018-03-06 07:23 | Emergency (ER) | payer BC ==
--- NOTE | 2018-03-06 08:12 | ER Document Report ---
ED General - General Chief Complaint: Chest Tightness Stated Complaint: CHEST PAIN Time Seen by Provider: 03/06/18 07:59 TRAVEL OUTSIDE OF THE [place] IN LAST 30 DAYS: No - HPI Notes: Patient is a 32-year-old female with a history of hypertension who presents to the ED complaining of bilateral arm tingling and numbness primarily over the last week, but originally started 1 year ago. Patient states that her discomfort has now started to involve her chest and feels like a pulling sensation. Patient states that movements make her pain worse. This is been ongoing constantly over the last week as well. Patient states that she wakes up at night and feels her hands b/l going numb at times primarily to the fourth and fifth digits. 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 She has never had an EMG study performed before. No other significant medical conditions. Denies any headache, fever, head injury, neck pain, changes in vision/speech/mentation/hearing, URI, sore throat, palpitations, syncope, cough, shortness of breath, wheeze, dyspnea, abdominal pain, nausea/vomiting/diarrhea, urinary retention, dysuria, hematuria, loss of control of bowel or bladder, saddle anesthesia, muscle paralysis/weakness, or rash. - Related Data Allergies/Adverse Reactions: Penicillins Allergy (Intermediate, Verified 03/06/18 07:32) Hives amoxicillin Allergy (Verified 03/06/18 07:32) iodine Allergy (Verified 03/06/18 07:32) latex [Latex] Allergy (Verified 03/06/18 07:32) IVP Dye Allergy (Uncoded 03/06/18 07:32) Past Medical History - Social History Smoking Status: Current Some Day Smoker Family History: Arthritis, CAD, CVA, Hyperlipidemia, Hypertension, Malignancy Pulmonary Medical History: Reports: Hx Pneumonia Renal/ Medical History: Reports: Hx Ovarian Cysts. Denies: Hx Peritoneal Dialysis GI Medical History: Reports: Hx Gastroesophageal Reflux Disease Skin Medical History: Reports Hx Eczema, Reports Hx Psoriasis Psychiatric Medical History: Reports: Hx Depression Past Surgical History: Reports: Hx Section - x2, Hx Tubal Ligation - Immunizations Immunizations up to date: Yes Hx Diphtheria, Pertussis, Tetanus Vaccination: Yes - 2009 Hx Pneumococcal Vaccination: 04/24/09 Review of Systems - Review of Systems -: Yes All other systems reviewed and negative Physical Exam - Vital signs Vitals: Temp Pulse Resp BP Pulse Ox 98.2 F 98 18 138/89 H 93 03/06/18 07:34 03/06/18 07:34 03/06/18 07:34 03/06/18 07:34 03/06/18 07:34 - Notes Notes: PHYSICAL EXAMINATION: GENERAL: Well-appearing, well-nourished and in no acute distress. A&Ox4. Answers questions appropriately. HEAD: Atraumatic, normocephalic. EYES: Pupils equal round and reactive to light, extraocular movements intact, sclera anicteric, conjunctiva are normal. ENT: Nares patent and without discharge. oropharynx clear without exudates. No tonsilar hypertrophy or erythema. Moist mucous membranes. NECK: Normal range of motion, supple without lymphadenopathy Chest: + reproducible tenderness to palpation of the rt pectoral area and reproducible with arm extension/abduction. LUNGS: Breath sounds clear to auscultation bilaterally and equal. No wheezes rales or rhonchi. HEART: Regular rate and rhythm without murmurs, rubs, gallops. ABDOMEN: Soft, nontender, nondistended abdomen. No guarding, no rebound. No masses appreciated. Normal bowel sounds present. No CVA tenderness bilaterally. Musculoskeletal: FROM to passive/active. Strength 5+/5. Marlen neg. No asymmetry to LE's. + mild tinel cubital tunnel b/l. Median nerve testing neg. No obvious impingement to the shoulder. N/V intact distal. Extremities: No cyanosis, clubbing, or edema b/l. Peripheral pulses 2+. Capillary refill less than 3 seconds. NEUROLOGICAL: Normal speech, normal gait. PSYCH: Normal mood, normal affect. SKIN: Warm, Dry, normal turgor, no rashes or lesions noted. Course - Re-evaluation Re-evalutation: 03/06/18 09:30 Patient is an afebrile, well-hydrated 32-year-old female who presents to the ED with chest wall pain and suspected possible nerve impingement. Vitals are acceptable without any significant tachycardia, tachypnea, or hypoxia. PE is otherwise unremarkable aside from the reproducible lateral lower chest wall tenderness and tinel + cubital tunnel b/l. Patient is nontoxic-appearing and is tolerating p.o. without any difficulties. Pt is currently asymptomatic. CBC , CMP, EKG/cardiac enzymes, tsh, mag, chest x-ray are all unremarkable for any acute pathology. Patient has a heart score of 1, Wells score of 0, and is PERC negative. Patient does not have any dyspnea or shortness of breath. Patient's presentation and symptomatology creates low suspicion for acute intracranial pathology, ACS, PE, pneumothorax, pericarditis, dissection, respiratory compromise, severe dehydration, sepsis, meningitis, or other systemic emergent condition at this time. Patient is aware that this condition can change from initial presentation and she needs to monitor symptoms closely and seek medical attention for any acute changes. Recommend conservative measures for symptoms. ?EMG through PCM. Recheck with your PCM in 3-5 days. Return to the ED with any worsening/concerning symptoms otherwise as reviewed in discharge. Patient is in agreement. - Vital Signs Vital signs: Temp Pulse Resp BP Pulse Ox 98.2 F 98 25 H 93/63 L 97 03/06/18 07:34 03/06/18 07:34 03/06/18 09:00 03/06/18 08:01 03/06/18 09:00 - Laboratory Result Diagrams: 03/06/18 08:15 03/06/18 08:15 Laboratory results interpreted by me: 03/06/18 08:15 Glucose 118 H ALT 54 H Discharge - Discharge Clinical Impression: Chest wall pain Ulnar nerve impingement Qualifiers: Laterality: unspecified laterality Qualified Code(s): G56.20 - Lesion of ulnar nerve, unspecified upper limb Condition: Stable Disposition: HOME, SELF-CARE Instructions: Chest Wall Pain ([facility]) Additional Instructions: Rest, Ice Tylenol/ibuprofen as needed Light stretches daily Strength exercises as able Moist heat and massage may help Consider possible EMG study F/u with your PCP in 3-5 days for a recheck Consider consult(s) with Orthopedics/physical therapy for ongoing/worsening symptoms Return to the ED with any worsening symptoms and/or development of fever, headache, changes in behavior/mentation/vision/speech, chest pain, palpitations , syncope, shortness of breath, trouble breathing, abdominal pain, n/v/d, blood in stool/urine, loss of control of bowel/bladder, urinary retention, muscle weakness/paralysis, saddle anesthesia, or other worsening symptoms that are concerning to you. Prescriptions: Prednisone [Deltasone 10 mg Tablet] 10 mg PO DAILY #18 tablet Referrals: MANPREET DOAN MD [COMMUNITY BASED STAFF] - Follow up as needed [facility] [Provider Group] - Follow up as needed
[2018-03-06 08:16] LABS: APPEARANCE,URINE SLIGHTLY-CLOUDY; BILIRUBIN,URINE NEGATIVE (NEGATIVE); COLOR,URINE YELLOW; GLUCOSE, URINE NEGATIVE (NEGATIVE); KETONES,URINE NEGATIVE (NEGATIVE); LEUKOCYTE ESTERASE,URINE NEGATIVE (NEGATIVE); NITRITE,URINE NEGATIVE (NEGATIVE); PROTEIN,URINE NEGATIVE (NEGATIVE); URINE SPECIFIC GRAVITY 1.008; UROBILINOGEN,URINE NEGATIVE mg/dL (<2.0)
[2018-03-06 08:25] LABS: ABSOLUTE EOSINOPHILS # (AUTO) 0.2 10^3/uL (0.0-0.6); ABSOLUTE LYMPHOCYTES (AUTO) 2.4 10^3/uL (0.5-4.7); ABSOLUTE MONOCYTES (AUTO) 0.3 10^3/uL (0.1-1.4); ABSOLUTE NEUT (AUTO) 4.2 10^3/uL (1.7-8.2); BASOPHILS % (AUTO) 0.6 % (0-2); EOSINOPHILS % (AUTO) 2.6 % (0-6); HEMATOCRIT 41.4 % (36.0-47.0); HEMOGLOBIN 14.5 g/dL (12.0-15.5); LYMPHOCYTES % (AUTO) 34.1 % (13-45); MEAN CORPUSCULAR VOLUME 89 fl (80-97); MONOCYTES % (AUTO) 4.2 % (3-13); PLATELET COUNT 264 10^3/uL (150-450); RED BLOOD COUNT 4.66 10^6/uL (3.72-5.28); RED CELL DISTRIBUTION WIDTH 13.1 % (11.5-14.0); SEGMENTED NEUTROPHILS % (AUTO) 58.5 % (42-78); TOTAL CELLS COUNTED % (AUTO) 100 %; WHITE BLOOD COUNT 7.2 10^3/uL (4.0-10.5)
--- NOTE | 2018-03-06 08:39 | RADIOLOGY REPORT (SQ) ---
EXAM DESCRIPTION: CHEST SINGLE VIEW COMPLETED DATE/TIME: 03/06/2018 8:25 am REASON FOR STUDY: CP COMPARISON: Chest films 02/03/2017 EXAM PARAMETERS: NUMBER OF VIEWS: One view. TECHNIQUE: Single frontal radiographic view of the chest acquired. RADIATION DOSE: NA LIMITATIONS: None. FINDINGS: LUNGS AND PLEURA: No opacities, masses or pneumothorax. No pleural effusion. MEDIASTINUM AND HILAR STRUCTURES: No masses. Contour normal. HEART AND VASCULAR STRUCTURES: Heart normal in size. Normal vasculature. BONES: No acute findings. HARDWARE: None in the chest. OTHER: No other significant finding. IMPRESSION: NO ACUTE RADIOGRAPHIC FINDING IN THE CHEST. TECHNICAL DOCUMENTATION: JOB ID: [id number] [employer]- All Rights Reserved Reading location - IP/workstation name: [email or web address]
[2018-03-06 08:45] LABS: ALANINE AMINOTRANSFERASE 54 U/L (9-52); ALBUMIN 3.9 g/dL (3.5-5.0); ALKALINE PHOSPHATASE 55 U/L (38-126); ANION GAP 12 (5-19); ASPARTATE AMINO TRANSFERASE 33 U/L (14-36); BILIRUBIN,DIRECT 0.2 mg/dL (0.0-0.4); BILIRUBIN,TOTAL 0.4 mg/dL (0.2-1.3); BLOOD UREA NITROGEN 10 mg/dL (7-20); CALCIUM 9.3 mg/dL (8.4-10.2); CARBON DIOXIDE 26 mmol/L (22-30); CHLORIDE 104 mmol/L (98-107); GLUCOSE 118 mg/dL (75-110); POTASSIUM 4.4 mmol/L (3.6-5.0); SODIUM 141.5 mmol/L (137-145); TOTAL PROTEIN 6.8 g/dL (6.3-8.2)
--- NOTE | 2018-03-06 10:00 | EKG REPORT ---
SEVERITY:- NORMAL ECG - SINUS RHYTHM : Confirmed by: Elías Hsu 06-Mar-2018 09:59:51
[2018-03-06 10:01] VITALS: BP 119/70
== END 2018-03-06 10:09 | disposition home or self-care (01) ==
LOC: ER 07:23
DX: R07.89 Other chest pain (principal); G56.20 Lesion of ulnar nerve, unspecified upper limb; R20.2 Paresthesia of skin; R20.0 Anesthesia of skin; Z88.0 Allergy status to penicillin; Z91.040 Latex allergy status; Z91.041 Radiographic dye allergy status; F17.200 Nicotine dependence, unspecified, uncomplicated; I10 Essential (primary) hypertension
CPT/HCPCS: 36415; 71045; 80053; 81001; 83735; 84443; 84484; 84703; 85025; 87086; 93005; 93010; 99285

== ENCOUNTER 2018-05-07 10:11 | Emergency (ER) | payer BC ==
[2018-05-07] MEDS ORDERED: IBUPROFEN 600 MG TABLET PO ONE (10:55)
[2018-05-07] MEDS ORDERED: HYDROCODONE/ACETAMINOPHEN 5-325 MG TABLET PO ONE (10:55)
--- NOTE | 2018-05-07 11:53 | RADIOLOGY REPORT (SQ) ---
EXAM DESCRIPTION: TOE LEFT COMPLETED DATE/TIME: 05/07/2018 11:42 am REASON FOR STUDY: great toe pain/erythema, eval for osteo COMPARISON: None. NUMBER OF VIEWS: Three views. TECHNIQUE: AP, lateral, and oblique images acquired of the left first toe. LIMITATIONS: None. FINDINGS: MINERALIZATION: Normal. BONES: No acute fracture or dislocation. No worrisome bone lesions. JOINTS: No effusions. SOFT TISSUES: Defect nail bed. OTHER: No other significant finding. IMPRESSION: No evidence of osteomyelitis. COMMENT: SITE OF TRAUMA/COMPLAINT MARKED/STAMP COMPLETED: YES. TECHNICAL DOCUMENTATION: JOB ID: [id number] [employer]- All Rights Reserved Reading location - IP/workstation name: [email or web address]
--- NOTE | 2018-05-07 12:15 | ER Document Report ---
HPI - HPI Time Seen by Provider: 05/07/18 10:44 Pain Level: 4 Notes: Patient is a 32-year-old female who presents with chief complaint of left great toe pain, redness and swelling. She states that she had her toenail removed in February due to it being infected. She states that it was healing up fine until the last few days. She denies any fevers. She denies any drainage from the area. - CONSTITUTIONAL Constitutional: DENIES: Fever, Chills - REPRODUCTIVE Reproductive: DENIES: : Past Medical History - General Information source: Patient - Social History Smoking Status: Current Every Day Smoker Chew tobacco use (# tins/day): No Frequency of alcohol use: None Drug Abuse: None Family History: Arthritis, CAD, CVA, Hyperlipidemia, Hypertension, Malignancy Patient has suicidal ideation: No Patient has homicidal ideation: No Pulmonary Medical History: Reports: Hx Pneumonia Renal/ Medical History: Reports: Hx Ovarian Cysts. Denies: Hx Peritoneal Dialysis GI Medical History: Reports: Hx Gastroesophageal Reflux Disease Skin Medical History: Reports Hx Eczema, Reports Hx Psoriasis Psychiatric Medical History: Reports: Hx Depression Past Surgical History: Reports: Hx Section - x2, Hx Tubal Ligation - Immunizations Immunizations up to date: Yes Hx Diphtheria, Pertussis, Tetanus Vaccination: Yes - 2009 Hx Pneumococcal Vaccination: 04/24/09 Vertical Provider Document - CONSTITUTIONAL Notes: PHYSICAL EXAMINATION: GENERAL: Well-appearing, well-nourished and in no acute distress. HEAD: Atraumatic, normocephalic. EYES: Pupils equal round extraocular movements intact, conjunctiva are normal. ENT: Nares patent NECK: Normal range of motion LUNGS: No respiratory distress Musculoskeletal: Normal range of motion, erythema with mild swelling noted to left great toe, no abscess noted, no drainage noted. NEUROLOGICAL: Normal speech, normal gait. PSYCH: Normal mood, normal affect. SKIN: Warm, Dry, normal turgor, no rashes or lesions noted. - INFECTION CONTROL TRAVEL OUTSIDE OF THE [place] IN LAST 30 DAYS: No Course - Re-evaluation Re-evalutation: X-ray was obtained, no evidence of osteomyelitis or fracture. Patient will be placed on p.o. antibiotics and discharged home. - Vital Signs Vital signs: Temp Pulse Resp BP Pulse Ox 98.6 F 81 16 149/95 H 97 05/07/18 10:21 05/07/18 10:21 05/07/18 10:21 05/07/18 10:21 05/07/18 10:21 Discharge - Discharge Clinical Impression: Toe infection Condition: Stable Disposition: HOME, SELF-CARE Additional Instructions: Ingrown Nail You have an ingrown nail. An ingrown nail develops when the tissues near the nail are pushed up over the nail. Irritation develops and infection follows. An ingrown nail can result from poorly fitting shoes, improper cutting of the nail, or minor injuries. Once the tissues at the edge of the nail swell, the problem can become chronic. Emergency treatment is usually removal of the portion of the nail that has become ingrown. This is followed by hot soaks three to four times a day. Antibiotics may be necessary if infection is present. After the toe heals, make certain there is no pressure on the area, either from shoes or another toe. Trim the toenails straight across, not curved back into the corners. If ingrown nails recur, an operation to remove excess tissue near the nail, or narrowing of the nail, may be necessary. Call the doctor or return if swelling increases, or red streaks, swelling, or swollen glands are found. I have printed out information regarding ingrown nails as even though your toenail has been removed the infection around the area is similar. Please use warm soaks as outlined above. Take the antibiotics as prescribed, complete the entire course even if you are feeling better. Prescriptions: Doxycycline Hyclate [Vibramycin 100 mg Tablet] 100 mg PO BID #20 tablet Forms: Return to Work Referrals: WALI PURCELL MD [Primary Care Provider] - Follow up as needed
[2018-05-07 12:22] VITALS: BP 151/92
== END 2018-05-07 12:24 | disposition home or self-care (01) ==
LOC: ER 10:11
DX: L08.9 Local infection of the skin and subcutaneous tissue, unspecified (principal); M79.675 Pain in left toe(s); Z98.890 Other specified postprocedural states; F17.200 Nicotine dependence, unspecified, uncomplicated
CPT/HCPCS: 99283

== ENCOUNTER 2018-07-02 09:18 | Emergency (ER) | payer BC ==
[2018-07-02 10:34] LABS: A TYPE INFLUENZA AG NEGATIVE (NEGATIVE); B INFLUENZA AG NEGATIVE (NEGATIVE)
[2018-07-02] MEDS ORDERED: DEXAMETHASONE SOD PHOS INJ 10 MG/1 ML VIAL IM ONE (10:43)
--- NOTE | 2018-07-02 11:05 | ER Document Report ---
HPI - HPI Time Seen by Provider: 07/02/18 09:37 Pain Level: 3 Notes: Patient is a 32-year-old female who presents to the emergency department complaining of sore throat, chills, headache, cough and congestion that started 4 days ago. Patient also reports bilateral ear pain and pressure patient did not receive an influenza immunization. - EENT EENT: REPORTS: Sore Throat, Ear Pain - REPRODUCTIVE Reproductive: DENIES: : Past Medical History - General Information source: Patient - Social History Smoking Status: Current Every Day Smoker Frequency of alcohol use: None Drug Abuse: None Family History: Arthritis, CAD, CVA, Hyperlipidemia, Hypertension, Malignancy Patient has suicidal ideation: No Patient has homicidal ideation: No Pulmonary Medical History: Reports: Hx Pneumonia Renal/ Medical History: Reports: Hx Ovarian Cysts. Denies: Hx Peritoneal Dialysis GI Medical History: Reports: Hx Gastroesophageal Reflux Disease Skin Medical History: Reports Hx Eczema, Reports Hx Psoriasis Psychiatric Medical History: Reports: Hx Depression Past Surgical History: Reports: Hx Section - x2, Hx Tubal Ligation - Immunizations Immunizations up to date: Yes Hx Diphtheria, Pertussis, Tetanus Vaccination: Yes - 2009 Hx Pneumococcal Vaccination: 04/24/09 Vertical Provider Document - CONSTITUTIONAL Notes: PHYSICAL EXAMINATION: GENERAL: Well-appearing, well-nourished and in no acute distress. HEAD: Atraumatic, normocephalic. EYES: Pupils equal round extraocular movements intact, conjunctiva are normal. ENT: Nares patent, mild tonsillar swelling, no exudates, no evidence of peritonsillar abscess. No frontal or maxillary sinus pain with palpation. NECK: Normal range of motion, no cervical lymphadenopathy. LUNGS: No respiratory distress, lung sounds clear to auscultation bilaterally. Musculoskeletal: Normal range of motion NEUROLOGICAL: Normal speech, normal gait. PSYCH: Normal mood, normal affect. SKIN: Warm, Dry, normal turgor, no rashes or lesions noted. - INFECTION CONTROL TRAVEL OUTSIDE OF THE [place] IN LAST 30 DAYS: No Course - Re-evaluation Re-evalutation: Rapid strep and influenza are both negative. Likely viral upper respiratory illness. Patient will be discharged home in stable condition. Discussed ED return precautions. Follow-up with PCP. - Vital Signs Vital signs: Temp Pulse Resp BP Pulse Ox 97.6 F 84 16 161/102 H 96 07/02/18 10:57 07/02/18 10:57 07/02/18 10:57 07/02/18 10:57 07/02/18 10:57 Discharge - Discharge Clinical Impression: Sore throat, Viral upper respiratory illness Condition: Stable Disposition: HOME, SELF-CARE Additional Instructions: Upper Respiratory Illness You have a viral infection of the respiratory passages -- a "cold." This common infection causes nasal congestion, drainage, and often sore throat and cough. It is caused by a virus and is highly contagious. The disease usually lasts a week or more, though the worst symptoms are usually over in 3 or 4 days. There is no "cure" for the viral infection -- it must run its course. If there is a complication, such as bacterial infection in the nose, sinuses, middle ear, or bronchial tubes, antibiotics may be required, but antibiotics won't affect the virus. If you smoke, you should STOP!! Drink plenty of fluids. A humidifier may help. An expectorant medication or decongestant may make you more comfortable. Use acetaminophen or ibuprofen for fever or aches. See the doctor if fever persists over two or three days, if there is any significant worsening of your symptoms, or if you simply fail to improve as expected. SORE THROAT: Sore throats may be caused by viruses, bacteria, or fungi. Most are due to a virus, and must get better on their own. Bacterial sore throats, particularly those due to "strep," need treatment with antibiotics. If an antibiotic is prescribed, be sure to take the medication for a full 10 days. Failure to take the antibiotic can result in complications such as rheumatic fever. Sometimes, an injection of antibiotics is given instead of pills or liquid. This single "shot" is equal in effectiveness to the oral medication. To relieve symptoms, take acetaminophen for pain. Sip clear liquids frequently, or eat popsicles or ice chips. Anesthetic sprays or lozenges may help. Make sure the air in the room is not too dry. Avoid using decongestants or antihistamines. Call the doctor if there is no improvement in two days, or if you have difficulty breathing, increasing throat pain, high fever, rash, or frequent vomiting. STEROID MEDICATION: You have been given a medicine of the cortisone/steroid class. This medication is used to control inflammation or allergy. It is usually only given for a short period of time, until the acute process subsides. There are usually no side effects from short-term use of cortisone-like medications. Some persons feel an increased sense of well-being and are not sleepy at bedtime. Long-term use of cortisone medications is best avoided, unless required for a severe condition. If your condition does not remit, or relapses after the course of corticosteroid medication, you should consult your physician. FOLLOW-UP CARE: If you have been referred to a physician for follow-up care, call the physicians office for an appointment as you were instructed or within the next two days. If you experience worsening or a significant change in your symptoms, notify the physician immediately or return to the Emergency Department at any time for re-evaluation. The rapid strep and influenza testing today were negative. You were given a shot of Decadron which is a steroid. This will help reduce the inflammation in your tonsils and throat. Take ibuprofen 600 mg every 6 hours for pain and fever. Drink plenty of fluids. Follow-up with your primary care provider in the next 3-5 days for a follow-up. Forms: Return to Work Referrals: DIANE NYE PA [Primary Care Provider] - Follow up as needed
[2018-07-02 11:16] VITALS: BP 143/96
== END 2018-07-02 11:18 | disposition home or self-care (01) ==
LOC: ER 09:18
DX: J02.9 Acute pharyngitis, unspecified (principal); J06.9 Acute upper respiratory infection, unspecified; B97.89 Other viral agents as the cause of diseases classified elsewhere; R68.83 Chills (without fever); R51 Headache; R05 Cough; H92.03 Otalgia, bilateral; F17.200 Nicotine dependence, unspecified, uncomplicated; Z87.01 Personal history of pneumonia (recurrent)
CPT/HCPCS: 99283; 96372; 87070; 87880; 87804; J1100

== ENCOUNTER → 2019-01-29 | Outpatient (CLI) | payer BC ==
--- NOTE | 2019-01-29 13:51 | RADIOLOGY REPORT (SQ) ---
EXAM DESCRIPTION: CT ABD/PELVIS NO ORAL OR IV COMPLETED DATE/TIME: 01/29/2019 1:36 pm REASON FOR STUDY: R10.11 RIGHT UPPER QUADRANT PAIN R10.11 RIGHT UPPER QUADRANT PAIN COMPARISON: 06/13/2016 TECHNIQUE: CT scan of the abdomen and pelvis performed without intravenous or oral contrast. Images reviewed with lung, soft tissue, and bone windows. Reconstructed coronal and sagittal MPR images revi ewed. All images stored on PACS. All CT scanners at this facility use dose modulation, iterative reconstruction, and/or weight based d osing when appropriate to reduce radiation dose to as low as reasonably achievable (ALARA). [facility]: Dose Right [facility]: CareDose [facility]: Dose Right [facility]: Teradose 4D [facility]: Smart [employer] RADIATION DOSE: CT Rad equipment meets quality standard of care and radiation dose reduction techniq ues were employed. CTDIvol: 30.2 mGy. DLP: 1673 mGy-cm.mGy. LIMITATIONS: None. FINDINGS: LOWER CHEST: No significant findings. No nodules or infiltrates. NON-CONTRASTED LIVER, SPLEEN, ADRENALS: Diffuse mild hepatic hypo attenuation. No masses. PANCREAS: No masses. No peripancreatic inflammatory changes. GALLBLADDER: Contracted. No stones are seen. RIGHT KIDNEY AND URETER: No suspicious masses. Assessment limited by lack of IV contrast. No signif icant calcifications. No hydronephrosis or hydroureter. LEFT KIDNEY AND URETER: No suspicious masses. Assessment limited by lack of IV contrast. No signifi cant calcifications. No hydronephrosis or hydroureter. AORTA AND RETROPERITONEUM: No aneurysm. No retroperitoneal masses or adenopathy. BOWEL AND PERITONEAL CAVITY: No obvious masses or inflammatory changes. No free fluid. APPENDIX: Normal. PELVIS, BLADDER, AND ABDOMINAL WALL:No abnormal masses. No free fluid. Bladder normal. BONES: No significant findings. OTHER: No other significant finding. IMPRESSION: Hepatic steatosis. Contracted gallbladder. No gallstones. COMMENT: Quality ID # 436: Final reports with documentation of one or more dose reduction techniques (e.g., Automated exposure control, adjustment of the mA and/or kV according to patient size, use of iterative reconstruction technique) TECHNICAL DOCUMENTATION: JOB ID: [id number] [employer]- All Rights Reserved Reading location - IP/workstation name: [email or web address]
== END ==
LOC: RAD 13:00
PROVIDERS: ATTEND Physician Assistant
DX: K82.0 Obstruction of gallbladder (principal); K76.0 Fatty (change of) liver, not elsewhere classified; R10.11 Right upper quadrant pain
CPT/HCPCS: 74176

== ENCOUNTER 2020-01-27 12:51 | Emergency (ER) | payer BC ==
[2020-01-27] MEDS ORDERED: ACETAMINOPHEN 325 MG TABLET PO ONE (13:54)
--- NOTE | 2020-01-27 13:56 | ER Document Report ---
ED Medical Screen (RME) - General Chief Complaint: Dizziness Stated Complaint: DIZNESS/COUGH/HEACHACHE Time Seen by Provider: 01/27/20 13:53 Primary Care Provider: DIANE NYE PA [Primary Care Provider] - Follow up as needed Mode of Arrival: Ambulatory Information source: Patient Notes: HPI; 34-year-old female presents to the emergency room complaining of a cough, headache, blurry vision, and dizziness which started earlier today. History of hypertension states she felt like her blood pressure was elevated. Did take her medications as prescribed. Denies head trauma head injury. Feels like the room is spinning. Denies worst headache of her life. Denies any sudden thunderclap. No medications for symptoms. PE: Alert and oriented x3. Mild distress noted. PERRLA, EOMI mild photophobia bilaterally. Lungs: Clear to auscultation without rales, rhonchi, wheezes. Heart: Regular rate and rhythm without murmurs, rubs, gallops. I have greeted and performed a rapid initial assessment of this patient. A comprehensive ED assessment and evaluation of the patient, analysis of test results and completion of the medical decision making process will be conducted by additional ED providers. I have specifically instructed the patient or family members with the patient to immediately return to any nursing staff should anything change in the patient's condition or with their chief complaint. TRAVEL OUTSIDE OF THE [place] IN LAST 30 DAYS: No - Related Data Allergies/Adverse Reactions: Penicillins Allergy (Intermediate, Verified 07/02/18 09:38) Hives amoxicillin Allergy (Verified 07/02/18 09:38) iodine Allergy (Verified 07/02/18 09:38) latex [Latex] Allergy (Verified 07/02/18 09:38) IVP Dye Allergy (Uncoded 07/02/18 09:38) Past Medical History - Social History Family history: Reviewed & Not Pertinent Pulmonary Medical History: Reports: Hx Pneumonia Renal/ Medical History: Reports: Hx Ovarian Cysts. Denies: Hx Peritoneal Dialysis GI Medical History: Reports: Hx Gastroesophageal Reflux Disease Skin Medical History: Reports Hx Eczema, Reports Hx Psoriasis Psychiatric Medical History: Reports: Hx Depression Past Surgical History: Reports: Hx Section - x2, Hx Tubal Ligation - Immunizations Immunizations up to date: Yes Hx Diphtheria, Pertussis, Tetanus Vaccination: Yes - 2009 Physical Exam - Vital signs Vitals: Temp Pulse Resp BP Pulse Ox 98.6 F 77 20 140/104 H 98 01/27/20 13:25 01/27/20 13:25 01/27/20 13:25 01/27/20 13:25 01/27/20 13:25 Course - Vital Signs Vital signs: Temp Pulse Resp BP Pulse Ox 98.6 F 77 20 140/104 H 98 01/27/20 13:25 01/27/20 13:25 01/27/20 13:25 01/27/20 13:25 01/27/20 13:25 Doctor's Discharge - Discharge Referrals: DIANE NYE PA [Primary Care Provider] - Follow up as needed
[2020-01-27 14:34] LABS: ABSOLUTE EOSINOPHILS # (AUTO) 0.2 10^3/uL (0.0-0.6); ABSOLUTE LYMPHOCYTES (AUTO) 3.1 10^3/uL (0.5-4.7); ABSOLUTE MONOCYTES (AUTO) 0.5 10^3/uL (0.1-1.4); ABSOLUTE NEUT (AUTO) 4.3 10^3/uL (1.7-8.2); BASOPHILS % (AUTO) 0.5 % (0-2); EOSINOPHILS % (AUTO) 2.6 % (0-6); HEMOGLOBIN 16.2 g/dL (12.0-15.5); LYMPHOCYTES % (AUTO) 38.2 % (13-45); MEAN CORPUSCULAR VOLUME 89 fl (80-97); MONOCYTES % (AUTO) 5.9 % (3-13); PLATELET COUNT 260 10^3/uL (150-450); RED BLOOD COUNT 5.06 10^6/uL (3.72-5.28); RED CELL DISTRIBUTION WIDTH 13.8 % (11.5-14.0); SEGMENTED NEUTROPHILS % (AUTO) 52.8 % (42-78); TOTAL CELLS COUNTED % (AUTO) 100 %; WHITE BLOOD COUNT 8.2 10^3/uL (4.0-10.5)
[2020-01-27 14:36] LABS: APPEARANCE,URINE SLIGHTLY-CLOUDY; BILIRUBIN,URINE NEGATIVE (NEGATIVE); COLOR,URINE YELLOW; GLUCOSE, URINE NEGATIVE (NEGATIVE); KETONES,URINE NEGATIVE (NEGATIVE); LEUKOCYTE ESTERASE,URINE NEGATIVE (NEGATIVE); NITRITE,URINE NEGATIVE (NEGATIVE); PROTEIN,URINE NEGATIVE (NEGATIVE); URINE SPECIFIC GRAVITY 1.016; UROBILINOGEN,URINE NEGATIVE mg/dL (<2.0)
[2020-01-27 14:54] LABS: ALBUMIN 4.4 g/dL (3.5-5.0); ALKALINE PHOSPHATASE 57 U/L (38-126); ANION GAP 12 (5-19); ASPARTATE AMINO TRANSFERASE 49 U/L (14-36); BILIRUBIN,DIRECT 0.3 mg/dL (0.0-0.4); BILIRUBIN,TOTAL 0.6 mg/dL (0.2-1.3); BLOOD UREA NITROGEN 12 mg/dL (7-20); CALCIUM 9.8 mg/dL (8.4-10.2); CARBON DIOXIDE 29 mmol/L (22-30); CHLORIDE 96 mmol/L (98-107); GLUCOSE 134 mg/dL (75-110); POTASSIUM 3.7 mmol/L (3.6-5.0); TOTAL PROTEIN 7.3 g/dL (6.3-8.2)
--- NOTE | 2020-01-27 15:18 | RADIOLOGY REPORT (SQ) ---
EXAM DESCRIPTION: CT HEAD WITHOUT IMAGES COMPLETED DATE/TIME: 01/27/2020 2:21 pm REASON FOR STUDY: dizzines COMPARISON: None. TECHNIQUE: Axial images acquired through the brain without intravenous contrast. Images reviewed wit h bone, brain and subdural windows. Images stored on PACS. All CT scanners at this facility use dose modulation, iterative reconstruction, and/or weight based d osing when appropriate to reduce radiation dose to as low as reasonably achievable (ALARA). [facility]: Dose Right [facility]: CareDose [facility]: Dose Right [facility]: Teradose 4D [facility]: Smart [employer] RADIATION DOSE: CT Rad equipment meets quality standard of care and radiation dose reduction techniq ues were employed. CTDIvol: 53.2 mGy. DLP: 1150 mGy-cm.. LIMITATIONS: None. FINDINGS: VENTRICLES: Normal size and contour. CEREBRUM: No masses. No hemorrhage. No midline shift. Age appropriate white matter. No evidence for a cute infarction. CEREBELLUM: No masses. No hemorrhage. No alteration of density. No evidence for acute infarction. EXTRA-AXIAL SPACES: No fluid collections. ORBITS AND GLOBE: No intra- or extraconal masses. Normal contour of globe without masses. CALVARIUM: No fracture. PARANASAL SINUSES: No fluid or mucosal thickening. SOFT TISSUES: No mass or hematoma. OTHER: No other significant finding. IMPRESSION: NO ACUTE INTRACRANIAL FINDINGS. EVIDENCE OF ACUTE STROKE: NO. TECHNICAL DOCUMENTATION: JOB ID: [id number] Quality ID # [id number]: Final reports with documentation of one or more dose reduction techniques (e.g., Au tomated exposure control, adjustment of the mA and/or kV according to patient size, use of iterative reconstruction technique) 2010 [employer]- All Rights Reserved Reading location - IP/workstation name: [email or web address]
[2020-01-27] MEDS ORDERED: DIPHENHYDRAMINE HCL 50 MG/ML VIAL IV ONE (16:57)
[2020-01-27] MEDS ORDERED: NORMAL SALINE 1000 ML 1,000 ML IV ONE (16:57)
[2020-01-27] MEDS ORDERED: KETOROLAC TROMETHAMINE INJ/PF 30 MG/1 ML SDV IV ONE (16:57)
[2020-01-27] MEDS ORDERED: PROCHLORPERAZINE EDISYLATE INJ 10 MG/2 ML VIAL IV ONE (16:57)
--- NOTE | 2020-01-27 17:27 | ER Document Report ---
Entered by MARYANN GORE SCRIBE 01/27/20 2175 Acting as scribe for:CECE REEDER MD ED General - General Chief Complaint: Dizziness Stated Complaint: DIZNESS/COUGH/HEACHACHE Time Seen by Provider: 01/27/20 13:53 Primary Care Provider: DIANE NYE PA [Primary Care Provider] - Follow up as needed Mode of Arrival: Ambulatory Information source: Patient Notes: This 34 year old female patient presents to the emergency department today with complaints of dizziness, "head spinning" sensation, and a headache with associated blurry vision. She reports that her headache began this morning at 10:00 AM and it has remained persistent since onset. Patient reports that the headache is at the base of her head around her neck and above both eyes. She denies any change in her dizziness with rapid head movement. TRAVEL OUTSIDE OF THE [place] IN LAST 30 DAYS: No - Related Data Allergies/Adverse Reactions: Penicillins Allergy (Intermediate, Verified 07/02/18 09:38) Hives amoxicillin Allergy (Verified 07/02/18 09:38) iodine Allergy (Verified 07/02/18 09:38) latex [Latex] Allergy (Verified 07/02/18 09:38) IVP Dye Allergy (Uncoded 07/02/18 09:38) Past Medical History - General Information source: Patient - Social History Smoking Status: Current Every Day Smoker Cigarette use (# per day): Yes - 1/2-1 ppd Frequency of alcohol use: None Drug Abuse: None Lives with: Family Family History: Reviewed & Not Pertinent, Arthritis, CAD, CVA, Hyperlipidemia, Hypertension, Malignancy Pulmonary Medical History: Reports: Hx Pneumonia Renal/ Medical History: Reports: Hx Ovarian Cysts GI Medical History: Reports: Hx Gastroesophageal Reflux Disease Skin Medical History: Reports Hx Eczema, Reports Hx Psoriasis Psychiatric Medical History: Reports: Hx Depression Past Surgical History: Reports: Hx Section - x2, Hx Tubal Ligation - Immunizations Immunizations up to date: Yes Hx Diphtheria, Pertussis, Tetanus Vaccination: Yes - 2009 Hx Pneumococcal Vaccination: 04/24/09 Review of Systems - Review of Systems Constitutional: No symptoms reported EENT: See HPI, Blurred vision Cardiovascular: See HPI, Dizziness Respiratory: No symptoms reported Gastrointestinal: No symptoms reported Genitourinary: No symptoms reported Female Genitourinary: No symptoms reported Musculoskeletal: No symptoms reported Skin: No symptoms reported Hematologic/Lymphatic: No symptoms reported Neurological/Psychological: See HPI, Headaches -: Yes All other systems reviewed and negative Physical Exam - Vital signs Vitals: Temp Pulse Resp BP Pulse Ox 98.6 F 77 20 140/104 H 98 01/27/20 13:25 01/27/20 13:25 01/27/20 13:25 01/27/20 13:25 01/27/20 13:25 - Notes Notes: Physical Exam: General: Alert, appears well. HEENT: Normocephalic. Atraumatic. PERRL. Extraocular movements intact. Oropharynx clear. No change in dizziness with rapid head movement. Minimal lateral gaze nystagmus. Neck: Supple. Non-tender. No carotid bruits. Respiratory: No respiratory distress. Clear and equal breath sounds bilaterally. Cardiovascular: Regular rate and rhythm. Abdominal: Morbidly obese. Non-tender. No distension. Normal Bowel Sounds. Back: No gross abnormalities. Extremities: Moves all four extremities. Upper extremities: Normal inspection. Normal ROM. Lower extremities: Normal inspection. No edema. Normal ROM. Neurological: Normal cognition. AAOx4. Normal speech. Psychological: Normal affect. Normal Mood. Skin: Warm. Dry. Normal color. Course - Re-evaluation Re-evalutation: 01/27/20 19:11 At this time the patient reports that her headache is gone, dizziness is gone, vision is back to normal and she is ready to go home. - Vital Signs Vital signs: Temp Pulse Resp BP Pulse Ox 98.6 F 80 20 142/69 H 98 01/27/20 13:25 01/27/20 19:00 01/27/20 19:00 01/27/20 19:00 01/27/20 19:00 - Laboratory Result Diagrams: 01/27/20 14:19 01/27/20 14:19 Laboratory results interpreted by me: 01/27/20 01/27/20 14:19 14:19 Hgb 16.2 H Sodium 136.9 L Chloride 96 L Glucose 134 H AST 49 H ALT 99 H - Diagnostic Test Radiology reviewed: Image reviewed, Reports reviewed - CT scan of the head is unremarkable. - EKG Interpretation by Me EKG shows normal: Sinus rhythm, [place], Intervals, QRS Complexes. abnormal: ST-T Waves - Borderline anterior T abnormalities Rate: Normal - 75 Rhythm: NSR Discharge - Discharge Clinical Impression: Migraine headache Qualifiers: Migraine type: unspecified Status migrainosus presence: without status migraino juliet Intractability: not intractable Qualified Code(s): G43.909 - Migraine, unspecified, not intractable, without status migrainosus Condition: Stable Disposition: HOME, SELF-CARE Additional Instructions: Migraine Headache The physician feels that your symptoms are due to a migraine attack. Migraines are caused by changes in the blood vessels of the head. Arteries go into spasm, often causing warning symptoms that a headache may begin soon. As the spasm goes away, the vessels dilate and throb, causing the pounding pain of a migraine headache. Migraines often cause nausea and vomiting. The treatment of headaches varies with severity and cause of pain. Not all headaches need pain shots -- in fact, there is evidence that using narcotics for headaches may make them worse in the long run. The physician will determine the therapy that's in your best interest for this particular headache. Medications are available that may prevent migraines, or stop them as they first occur. If one medication is not helpful, try another. If migraines are frequent, be patient -- follow the doctor's recommendations. Call the physician if you are worsening, or if new symptoms arise. You most likely had migraine headache with the dizziness and visual disturbance associated with it. You should drink plenty of fluids and rest at home in a cool quiet room today. Follow-up with your primary care provider if you continue to have these episodes. RETURN TO THE EMERGENCY ROOM IF ANY NEW OR WORSENING SYMPTOMS. Referrals: DIANE NYE PA [Primary Care Provider] - Follow up as needed I personally performed the services described in the documentation, reviewed and edited the documentation which was dictated to the scribe in my presence, and it accurately records my words and actions.
[2020-01-27 19:08] VITALS: BP 142/69
--- NOTE | 2020-01-27 21:53 | EKG REPORT ---
SEVERITY:- BORDERLINE ECG - SINUS RHYTHM BORDERLINE T ABNORMALITIES, ANTERIOR LEADS : Confirmed by: Keya Cespedes MD 27-Jan-2020 21:52:52
== END 2020-01-27 19:21 | disposition home or self-care (01) ==
LOC: ER 12:51
DX: G43.909 Migraine, unspecified, not intractable, without status migrainosus (principal); R42 Dizziness and giddiness; H53.8 Other visual disturbances; H55.00 Unspecified nystagmus; F17.210 Nicotine dependence, cigarettes, uncomplicated; Z88.0 Allergy status to penicillin; Z91.040 Latex allergy status; Z91.041 Radiographic dye allergy status
CPT/HCPCS: 93005; 99285; 96361; 96374; 96375; 36415; 84703; 85025; 80053; 81001; 84484; 70450; 93010; J1200; J1885; J0780; J7030